=== PATIENT | female | born 1985 | race Two or more races ===

== ENCOUNTER 2019-04-29 07:32 | Day surgery (SDC) | payer OTHER ==
[~2019-04-29 07:32] MED LIST: ALBUTEROL0.63 MG/3 IH; AZITHROMYCIN250 MG PO; MEDROL4 MG PO
[2019-04-29] MEDS ORDERED: Tylenol #3 PO (09:06)
[2019-04-29] MEDS ORDERED: DOXYCYCLINE HY100 M2 PO (09:06)
== END 2019-04-29 12:55 | disposition home or self-care (01) ==
LOC: CIR.AMB 07:32
DX: N84.0 Polyp of corpus uteri (principal); D25.0 Submucous leiomyoma of uterus